=== PATIENT | male | born 1985 | race Caucasian/White ===

== ENCOUNTER 2018-08-08 05:04 | Emergency (ER) | payer OTHER ==
[~2018-08-08] VITALS: Ht 165.1 cm; Wt 116.9 kg
[~2018-08-08 05:04] MED LIST: ARIP5TAB13 PO; DULO60CA7 PO; ESCI20TA10 PO; TOPI100T8 PO; TRAZ50TA66 PO
[2018-08-08] MEDS ORDERED: ACET-76 PO (05:17)
[2018-08-08] MEDS ORDERED: ONDANSETRON 2MG/ML, 2ML IVPush ONE (05:30)
[2018-08-08] MEDS ORDERED: SODIUM CHLORIDE FLUSH 10ML SYR IVF ONE (05:30)
[2018-08-08] MEDS ORDERED: MORPHINE SULFATE 4 MG/ML, 1ML IVPush PRN (05:30)
--- NOTE | 2018-08-08 05:31 | NUR ---
PT SEEN ON 07/29 FOR ANAL BLEEDING WAS DIAGNOSED WITH ANAL FISSURES. TAKING STOOL SOFTNERS AT HOME AND WAS SUPPOSED TO BE TAKING SUPPOSITORIES BUT DID NOT GET THE PRESCRIPTION FILLED. PT STATES "HIS STOOLS ARE LIKE YESSI THAT FLOAT AND THE TOILET WATER IS RED AFTER MY BM'S. THE TOILET PAPER IS ALSO RED WHEN I WIPE." PT HAVING BURNING AND ACHING TO LUQ AND LLQ OF ABDOMEN. DENIES VOMITING.
[2018-08-08] MEDS ORDERED: MORPHINE SULFATE 4 MG/ML, 1ML ONE (05:37)
[2018-08-08] MEDS ORDERED: ONDANSETRON 2MG/ML, 2ML ONE (05:37)
[2018-08-08 05:41] LABS: BASOPHILS # (AUTO) 0.04 x10^3/uL (0-0.1); BASOPHILS % (AUTO) 1 % (0-1); EOSINOPHILS # (AUTO) 0.09 x10^3/uL (0-0.4); EOSINOPHILS % (AUTO) 2 % (1-7); LYMPHOCYTES # (AUTO) 2.52 x10^3/uL (1-3.4); LYMPHOCYTES % (AUTO) 42 % (22-44); MD NO; MEAN CORPUSCULAR HEMOGLOBIN 29.4 pg (27.5-34.5); MEAN CORPUSCULAR HGB CONC 33.6 g/dL (33.2-36.2); MEAN CORPUSCULAR VOLUME 87.6 fL (81-97); MEAN PLATELET VOLUME 10.5 fL (7.4-10.4); MONOCYTES # (AUTO) 0.45 x10^3/uL (0.2-0.8); MONOCYTES % (AUTO) 8 % (2-9); NEUTROPHILS # (AUTO) 2.85 x10^3/uL (1.8-6.8); NEUTROPHILS % (AUTO) 48 % (42-75); PLATELET COUNT 210 x10^3/uL (130-400); RED BLOOD COUNT 4.61 x10^6/uL (4.38-5.82); RED CELL DISTRIBUTION WIDTH 13.8 % (9.4-14.8)
[2018-08-08 05:56] LABS: ALANINE AMINOTRANSFERASE 36 U/L (12-78); ALBUMIN 3.5 g/dL (3.4-5.0); ANION GAP 5 mmol/L (5-15); CALCIUM 8.2 mg/dL (8.5-10.1); CHLORIDE 110 mmol/L (98-107); CREATININE 1.01 mg/dL (0.7-1.3)
[2018-08-08 05:58] LABS: ALKALINE PHOSPHATASE 60 U/L (45-117); BILIRUBIN,TOTAL 0.4 mg/dL (0.2-1.0)
--- NOTE | 2018-08-08 06:03 | NUR ---
PT REFUSED MORPHINE, STATES "MY PAIN IS NOT THAT SEVERE WHERE I NEED IT." PT ALSO REFUSED ZOFRAN, DENIES HAVING NAUSEA.
--- NOTE | 2018-08-08 06:13 | NUR ---
PT TAKEN TO CT.
[2018-08-08] MEDS ORDERED: OMNIPAQUE 350 MG/ML, 100ML BOTTLE ONE (06:23)
--- NOTE | 2018-08-08 06:24 | NUR ---
PT BACK FROM CT.
[2018-08-08 06:27] VITALS: BP 115/72
[2018-08-08] MEDS ORDERED: ACETAMINOPHEN 500 MG TABLET PO ONE (06:30)
[2018-08-08] MEDS ORDERED: ACETAMINOPHEN 500 MG TABLET ONE (06:30)
--- NOTE | 2018-08-08 07:58 | NUR ---
FIRST CONTACT WITH PT: Patient given discharge instructions and they have confirmed that they understand the instructions. Patient ambulatory with steady gait. Pt left with d/c paperwork, work note, prescriptions, and all personal belongings. NADN. No needs expressed.
== END 2018-08-08 08:01 | disposition home or self-care (01) ==
LOC: ED 06:23
DX: K62.5 Hemorrhage of anus and rectum (principal); K60.0 Acute anal fissure; F32.9 Major depressive disorder, single episode, unspecified
CPT/HCPCS: 36415; 74177; 80053; 83690; 85025; 99284; Q9967

== ENCOUNTER 2020-03-28 08:58 | Emergency (ER) | payer OTHER ==
[~2020-03-28] VITALS: Ht 165.1 cm; Wt 113.3 kg
[~2020-03-28 08:58] MED LIST changes: +ACET-76 PO
[2020-03-28 09:00] VITALS: BP 133/94
[2020-03-28] MEDS ORDERED: LIDOCAINE 1%-EPI 1:100K, 20ML SQ ONE (09:30)
[2020-03-28] MEDS ORDERED: LIDOCAINE-MPF 1%, 5ML ONE ×2 (09:30→09:56)
--- NOTE | 2020-03-28 09:38 | NUR ---
SUTURE SET UP AT BEDSIDE.
--- NOTE | 2020-03-28 10:05 | NUR ---
TIANA LOPEZ AT BEDSIDE FOR SUTURE.
--- NOTE | 2020-03-28 10:38 | NUR ---
PT SUTURES COMPLETED, WD DRESSED.
--- NOTE | 2020-03-28 11:09 | NUR ---
DC EDUCATION PROVIDED, PT DEMONSTRATES UNDERSTANDING. PT AMBULATED STEADILY TO DC WITH RN AND SO.
== END 2020-03-28 11:11 | disposition home or self-care (01) ==
LOC: ED 09:47
DX: S61.412A Laceration without foreign body of left hand, initial encounter (principal); X58.XXXA Exposure to other specified factors, initial encounter; Y93.89 Activity, other specified; Y92.69 Other specified industrial and construction area as the place of occurrence of the external cause; Y99.8 Other external cause status
CPT/HCPCS: 12042; 99284